=== PATIENT | male | born 1960 | race Caucasian/White ===

== ENCOUNTER 2020-06-21 14:06 | Emergency (ER) | payer OTHER ==
[2020-06-21] MEDS ORDERED: ONDANSETRON 4 MG/2 ML VIAL IVP STA ×2 (14:26→16:10)
[2020-06-21] MEDS ORDERED: ONDANSETRON 4 MG/2 ML VIAL ONE (14:32)
[2020-06-21 14:40] LABS: BASOPHILS % (AUTO) 0.3 %; EOSINOPHILS # (AUTO) 0.1 10^3/uL (0.0-0.7); EOSINOPHILS % (AUTO) 0.8 %; HGB - HEMOGLOBIN 14.7 g/dL (14.0-18.0); LYMPHOCYTES % (AUTO) 11.6 %; MEAN CORPUSCULAR HEMOGLOBIN 31.2 pg (27.0-31.0); MEAN CORPUSCULAR HGB CONC 34.3 g/dL (32.0-36.0); MEAN CORPUSCULAR VOLUME 91.1 fL (80.0-94.0); MEAN PLATELET VOLUME 9.7 fL (7.4-11.4); MONOCYTES # (AUTO) 0.5 10^3/uL (0.0-1.0); MONOCYTES % (AUTO) 5.6 %; NEUTROPHILS # (AUTO) 7.1 10^3/uL (1.5-6.6); NEUTROPHILS % (AUTO) 81.1 %; PLT - PLATELET COUNT 261 10^3/uL (130-450); RED BLOOD COUNT 4.71 10^6/uL (4.70-6.10); WHITE BLOOD COUNT 8.7 x10^3/uL (4.8-10.8)
[2020-06-21 14:52] LABS: ALBUMIN 5.1 g/dL (3.2-5.5); ALBUMIN/GLOBULIN RATIO 1.5 (1.0-2.2); BILIRUBIN,TOTAL 0.9 mg/dL (0.2-1.0); CALCIUM 10.1 mg/dL (8.5-10.3); CREATININE 1.7 mg/dL (0.6-1.2); TOTAL PROTEIN 8.6 g/dL (6.7-8.2)
[2020-06-21] MEDS ORDERED: SODIUM CHLORIDE 0.9% 1,000 ML IV STA ×2 (15:35→15:47)
--- NOTE | 2020-06-21 16:13 | ED Physician Documentation ---
History of Present Illness - Stated complaint Stated Complaint: N/V/D - Chief complaint Chief Complaint: Abd Pain - History of Present Illness Timing: Prior to arrival, How many hours ago (8) - Additonal information Additional information: 60-year-old diabetic male here with acute onset nausea and vomiting. He reports a longstanding history of gastroparesis that is usually managed with domperidone or prescribed by his GI doctor at home. Patient reports that last 4 to 5 years he is probably had 15 ER visits always to [facility] for this issue. He reports that he gets acute onset nausea diaphoresis and then vomits uncontrollably. He typically resolves with some IV fluids and Zofran. Patient has some abdominal cramping but no focal pain. He has no fevers. Denies constipation or dysuria. Denies cough or fever. No chest pain Past surgical history is pertinent for cholecystectomy only pmh: DM II, gastroparesis meds: metformin, januvia, loratatadine, domperidone last A1c 7.4. Blood glucose typicall 175-200 at home Review of Systems Constitutional: denies: Fever, Chills Cardiac: denies: Chest pain / pressure, Palpitations Respiratory: denies: Dyspnea GI: reports: Nausea, Vomiting. denies: Abdominal Pain, Constipation, Diarrhea, Hematemesis, Bloody / black stool : denies: Dysuria Skin: denies: Rash, Lesions Musculoskeletal: denies: Neck pain, Back pain Neurologic: denies: Generalized weakness PD PAST MEDICAL HISTORY - Allergies Allergies/Adverse Reactions: Allergies Allergy/AdvReac Type Severity Reaction Status Date / Time azithromycin Allergy Rash Verified 06/21/20 14:12 Sulfa (Sulfonamide Allergy Rash Verified 06/21/20 14:11 Antibiotics) PD ED PE NORMAL - General General: Alert and oriented X 3, No acute distress, Well developed/nourished - Cardiac Cardiac: RRR, No murmur - Respiratory Respiratory: No respiratory distress - Abdomen Abdomen: Normal bowel sounds, Soft, Non tender - Back Back: No CVA TTP - Derm Derm: Normal color, Warm and dry, No rash - Neuro Neuro: Alert and oriented X 3, rubber mill tender 2-12 intact Eye Opening: Spontaneous Motor: Obeys Commands Verbal: Oriented GCS Score: 15 Results - Vitals Vitals: Vital Signs - 24 hr 06/21/20 06/21/20 06/21/20 14:12 14:30 15:00 Temperature 36.5 C Heart Rate 65 85 86 Respiratory 20 14 14 Rate Blood Pressure 114/70 116/75 110/66 O2 Saturation 100 99 99 06/21/20 06/21/20 16:21 16:30 Temperature Heart Rate 87 85 Respiratory 18 14 Rate Blood Pressure 134/73 H 126/76 O2 Saturation 100 99 Oxygen O2 Source Room air - Labs Labs: Laboratory Tests 06/21/20 06/21/20 06/21/20 14:24 14:25 14:25 WBC 8.7 RBC 4.71 Hgb 14.7 Hct 42.9 MCV 91.1 MCH 31.2 H MCHC 34.3 RDW 13.0 Plt Count 261 MPV 9.7 Neut # (Auto) 7.1 H Lymph # (Auto) 1.0 L [place] # (Auto) 0.5 Eos # (Auto) 0.1 Baso # (Auto) 0.0 Absolute Nucleated RBC 0.00 Nucleated RBC % 0.0 Sodium 139 Potassium 4.4 Chloride 101 Carbon Dioxide 23 Anion Gap 15.0 H BUN 34 H Creatinine 1.7 H Estimated GFR (MDRD) 41 L Glucose 228 H POC Whole Bld Glucose 225 H Calcium 10.1 Total Bilirubin 0.9 AST 30 ALT 30 Alkaline Phosphatase 122 H Total Protein 8.6 H Albumin 5.1 Globulin 3.5 Albumin/Globulin Ratio 1.5 Lipase 23 PD MEDICAL DECISION MAKING - ED course Complexity details: reviewed results, re-evaluated patient, d/w patient, d/w family ED course: 60-year-old diabetic male with a history of gastroparesis presents to the e mergency department with acute onset of uncontrolled nausea and vomiting. Patient is never been seen here before but reports that this is typical of his usual episodes. He will typically resolve with IV fluids and Zofran. - pt has no focal abdominal pain, will defer CT imaging at this time - I had ordered UA, unfortunately the sample was discarded by staff. Pt decliens to wait in the ED to provide UA - Patient is noted to have a creatinine of 1.7 today. He denies any previous history of renal insufficiency. This was associated with a BUN of 34. Patient feels that he is moderately dehydrated given his uncontrolled vomiting. Patient was repleted with 1 L of crystalloid. I had ordered 2 however following Zofran and IV fluids he does feel ready for discharge home. He declines a second liter of fluids. He is now tolerating sips of clear liquids. I have advised him to have close follow-up with his primary care doctor to follow-up with the mild renal insufficiency. Emergent return precautions Departure - Departure Disposition: 01 Home, Self Care Clinical Impression: History of diabetic gastroparesis, Renal insufficiency Vomiting Qualifiers: Vomiting type: unspecified Vomiting Intractability: non-intractable Nausea presence: with nausea Qualified Code(s): R11.2 - Nausea with vomiting, unspecified Condition: Stable Instructions: ED Nausea Vomiting Ch Comments: I am glad that you are feeling better. We have given you 1 L of IV fluids today. We note on your labs that your creatinine is a little bit elevated at 1.7. This may simply be due to dehydration however with your history of diabetes is important that you follow this lab up with your primary care doctor within the next week. Please return to the emergency department if you have a return of uncontrolled vomiting, suddenly severe belly pain or feel like your symptoms are not well managed
[2020-06-21 17:53] VITALS: BP 117/73
== END 2020-06-21 17:55 | disposition home or self-care (01) ==
LOC: ED 14:06
DX: E11.43 Type 2 diabetes mellitus with diabetic autonomic (poly)neuropathy (principal); K31.84 Gastroparesis; Z79.84 Long term (current) use of oral hypoglycemic drugs; N28.9 Disorder of kidney and ureter, unspecified; E86.0 Dehydration; Z90.49 Acquired absence of other specified parts of digestive tract
CPT/HCPCS: 36415; 80053; 83690; 85025; 96361; 96374; 96376; 99284

== ENCOUNTER 2020-11-17 18:20 | Outpatient (CLI) | payer OTHER ==
[2020-11-17 21:09] LABS: HEMOGLOBIN A1c% 7.8 % (4.27-6.07)
[2020-11-18 15:29] LABS: BASOPHILS % (AUTO) 0.6 %; EOSINOPHILS # (AUTO) 0.2 10^3/uL (0.0-0.7); EOSINOPHILS % (AUTO) 2.4 %; HGB - HEMOGLOBIN 13.4 g/dL (14.0-18.0); LYMPHOCYTES # (AUTO) 1.5 10^3/uL (1.5-3.5); LYMPHOCYTES % (AUTO) 21.5 %; MEAN CORPUSCULAR HEMOGLOBIN 31.1 pg (27.0-31.0); MEAN CORPUSCULAR HGB CONC 31.5 g/dL (32.0-36.0); MEAN CORPUSCULAR VOLUME 98.6 fL (80.0-94.0); MEAN PLATELET VOLUME 10.9 fL (7.4-11.4); MONOCYTES # (AUTO) 0.6 10^3/uL (0.0-1.0); MONOCYTES % (AUTO) 8.3 %; NEUTROPHILS # (AUTO) 4.7 10^3/uL (1.5-6.6); NEUTROPHILS % (AUTO) 66.8 %; PLT - PLATELET COUNT 261 10^3/uL (130-450); RED BLOOD COUNT 4.31 10^6/uL (4.70-6.10); RED CELL DISTRIBUTION WIDTH 13.3 % (12.0-15.0)
== END 2020-11-17 23:59 | disposition home or self-care (01) ==
LOC: LAB.R 18:20
PROVIDERS: ATTEND Family Medicine
DX: E11.43 Type 2 diabetes mellitus with diabetic autonomic (poly)neuropathy (principal); R61 Generalized hyperhidrosis; R53.83 Other fatigue; Z20.828 Contact with and (suspected) exposure to other viral communicable diseases
CPT/HCPCS: 80053; 83036; 84443; 85025

== ENCOUNTER 2020-11-18 16:10 | Outpatient (CLI) | payer OTHER ==
[2020-11-18 20:50] LABS: ALBUMIN 4.1 g/dL (3.2-5.5); ALBUMIN/GLOBULIN RATIO 1.2 (1.0-2.2); BILIRUBIN,TOTAL 0.4 mg/dL (0.2-1.0); CALCIUM 9.2 mg/dL (8.5-10.3); CREATININE 1.4 mg/dL (0.6-1.2); TOTAL PROTEIN 7.5 g/dL (6.7-8.2)
== END 2020-11-18 16:11 | disposition home or self-care (01) ==
LOC: LAB.R 16:10
PROVIDERS: ATTEND Family Medicine
DX: E11.43 Type 2 diabetes mellitus with diabetic autonomic (poly)neuropathy (principal); R61 Generalized hyperhidrosis; K31.84 Gastroparesis; R53.83 Other fatigue; R53.81 Other malaise
CPT/HCPCS: 80053; 84443; 87275; 87276

== ENCOUNTER 2023-01-24 12:30 | Outpatient (CLI) | payer OTHER ==
--- NOTE | 2023-01-24 16:04 | Ultrasound Report ---
PROCEDURE: Retroperitoneal INDICATIONS: ELEVATED CREATININE TECHNIQUE: Real-time scanning was performed of the kidneys and bladder organs, with image documentation. COMPARISON: None. FINDINGS: Kidneys: Kidneys are normal in size. Right kidney measures 11.5 cm long; left kidney measures 12.7 cm long. Right renal cortical thickness is 1.8 cm; left renal cortical thickness is 1.6 cm. No airam d masses, hydronephrosis, or nephrolithiasis. Bladder: Pre-void bladder volume is 431 mL. Post-void residual is 32 mL. Pre-void images demonstra te no intraluminal masses or stones. On pre-void images, bilateral ureteral jets are noted with colo r Doppler interrogation. (Of note, ureteral jets may not be detectable in up to 25% of cases due to insufficient differences in specific gravity between ureteral and bladder urine). Miscellaneous: No free abdominal fluid. The prostate gland measures 2.8 x 3.6 x 4.1 cm to the exten t it is visible. IMPRESSION: Normal sonographic appearance of kidneys and urinary bladder. Reviewed by: Fanta Andrews MD on 01/24/2023 4:02 PM PST Approved by: Fanta Andrews MD on 01/24/2023 4:02 PM PST Station ID: [id number]
== END 2023-01-24 12:31 | disposition home or self-care (01) ==
LOC: DI 12:30
PROVIDERS: ATTEND Internal Medicine
DX: R94.4 Abnormal results of kidney function studies (principal)